=== PATIENT | male | born 2000 | race Caucasian/White ===

== ENCOUNTER 2024-12-11 20:47 | Emergency (ER) | payer OTHER, SELFPAY ==
--- OUTSIDE RECORDS SUMMARY | 2023-07-29 08:20 | XMS_ITS ---
Author Organization [facility] Address [address] [place] [address] Care Team Providers Care Drafting Supervisor Name Role Phone Alissa Will Primary Care Provider [phone] Magnolia Benson Unavailable [phone] REASON FOR VISIT 3 Month Psych F/U & Med Refill Medications Medication SIG (Take, Route, Frequency, Duration) Notes Start Date End Date Status Mylanta Double-Strength 400-400-40 MG/5ML 10 ml as needed Orally Four times a day 03/10/2016 Not-Taking hydrOXYzine Pamoate 25 MG 1-2 capsules a s needed Orally Up to three times a day; Duration: 30 days Active FLUoxetine HCl 40 MG 1 capsule Orally Tw ice a day; Duration: 5 days Active PX Omeprazole 20 MG 2 tablets Orally Onc e a day; Duration: 30 day(s) 04/29/2016 Not-Taking SEROquel 200 MG 1 tablet at night Orally Once a day; Duration: 30 days Active Naproxen 250 MG 1 tablet Orally Twic e a day Not-Taking PROzac 20 MG 2 caps every morning and 1 every evening Orally twice a day Not-Taking Remeron 15 MG 1.5 tablet at bedtim e Orally Once a day; Duration: 30 days Not-Taking FLUoxetine HCl 40 MG 1 capsule Orally Tw ice a day Not-Taking Vistaril 25 MG 2 capsules as needed Orally three times a day Not-Taking Remeron SolTab 45 MG 1 tablet on the ton avani and allow to dissolve at bedtime Orally Once a day Active Social History Sex Assigned At : Social History Observation Description Sex Assigned At Male Encounters Encounter Location Date Provider Diagnosis [address] [place] [address] 07/29/2023 Alissa Will Plan Of Treatment No Information Progress Notes * Moy HUNGOB: 1 (24 yo M)Acc No.[id number]:07/29/2023 UNLOCKED PROGRESS NOTE Patient: Dereje CONCEPCION Provider: Wesley Will, MSN, BUSINESS INTELLIGENCE ANALYST, HAND FRAME SURGICAL ELASTIC KNITTER-C :2000 A ge:23 Y S ex:Male Date:07/29/2023 Address: [facility] Subjective: * Chief Complaints: * 1 . 3 Month Psych F/U & Med Refill. * Medical History: * Medications: T aking Remeron SolTab 45 MG Tablet Disintegrating 1 tablet on the tongue and allow to dissolve at bedtime Orally Once a day , Taking SEROquel 200 MG Tablet 1 tablet at night Orally Once a day , Taking hydrOXYzine Pamoate 25 MG Capsule 1-2 capsules as needed Orally Up to three times a day , Taking FLUoxetine HCl 40 MG Capsule 1 capsule Orally Twice a day , Not-Taking FLUoxetine HCl 40 MG Capsule 1 capsule Orally Twice a day , Not-Taking Vistaril 25 MG Capsule 2 capsules as needed Orally three times a day , Not-Taking PROzac 20 MG Capsule 2 caps every morning and 1 every evening Orally twice a day , Not-Taking Remeron 15 MG Tablet 1.5 tablet at bedtime Orally Once a day , Not-Taking Naproxen 250 MG Tablet 1 tablet Orally Twice a day , Not-Taking Mylanta Double-Strength 400-400-40 MG/5ML Suspension 10 ml as needed Orally Four times a day , Not-Taking PX Omeprazole 20 MG Tablet Delayed Release 2 tablets Orally Once a day Objective: * Vitals: Assessment: Plan: * Treatment: * * Electronic signature of Araceli Will , [id number] on 12/11/2024 at 08:49 PM CDT Sign off status: Pending * Provider: Wesley Wlil, MSN, BUSINESS INTELLIGENCE ANALYST, HAND FRAME SURGICAL ELASTIC KNITTER-C Date: 0 07/29/2023 Generated for Sterling sanchez/Nancy/Trinyitting on: 0 12/11/2024 08:49 PM CDT
--- OUTSIDE RECORDS SUMMARY | 2024-04-19 08:40 | XMS_ITS ---
Author Organization [facility] Address [address] [place] [address] Care Team Providers Care Phlebotomist Associate Name Role Phone Alissa Will Primary Care Provider [phone] [address] Benson Unavailable [phone] REASON FOR VISIT 4 week F/U Social History Sex Assigned At : Social History Observation Description Sex Assigned At Male Encounters Encounter Location Date Provider Diagnosis [place] [address] [facility] [place] [address] 04/19/2024 Alissa Will Plan Of Treatment No Information Progress Notes * Moy HUNGOB: 1 (24 yo M)Acc No.[id number]:04/19/2024 UNLOCKED PROGRESS NOTE Patient: Dereje CONCEPCION Provider: OSWALD Sandoval, LANGUAGES AND LITERATURE INSTRUCTOR, HEREDITARY CANCER PROGRAM COORDINATOR-C :2000 A ge:24 Y S ex:Male Date:04/19/2024 Address:[address], [place], [place] Subjective: * Chief Complaints: * 1 . 4 week F/U. * Medical History: Objective: * Vitals: Assessment: Plan: * Treatment: * * Electronic signature of Araceli Will , [id number] on 12/11/2024 at 08:49 PM CDT Sign off status: Pending * Provider: Wesley Will, MSN, LANGUAGES AND LITERATURE INSTRUCTOR, HEREDITARY CANCER PROGRAM COORDINATOR-C Date: 0 04/19/2024 Generated for Sterling sanchez/Nancy/Trinyitting on: 0 12/11/2024 08:49 PM CDT
--- NOTE | ~2024-12-11 | XR_ITS ---
EXAMINATION: XR foot LT min 3V DATE: 12/11/2024 21:15 INDICATION: Left foot pain TECHNIQUE: Dorsoplantar, oblique and lateral views of the left foot were obtained. COMPARISON: None. FINDINGS: Bone alignment is normal. No fracture. Joint spaces are normal. No erosions. Hypertrophic change and small heterotopic ossicle along the dorsal margin of the head of the talus. Soft tissues are unremarkable. No ankle joint effusion. IMPRESSION: 1. No acute osseous abnormality. Reviewed, dictated and finalized at location A.
--- OUTSIDE RECORDS SUMMARY | 2024-12-11 20:49 | XMS_ITS | Clinical Summary ---
Author Organization [facility] Address [address] [place] [address] Care Team Providers Care Cargo Checker Name Role Phone None, Provider Primary Care Provider Unavaila ble Allergies No known active allergies Social History Tobacco Use Types Packs/Day Years Used Date Smoking Tobacco: Never Assessed Sex and Gender Information Value Date Recorded Sex Assigned at Not on file Legal Sex Male 7:19 PM CDT Gender Identity Not on file Sexual Orientation Not on file Last Filed Vital Signs Vital Sign Reading Time Taken Comments Blood Pressure 169/103 03/11/2019 11:08 PM PHYSICIAN OFFICE NURSE Pulse 106 03/11/2019 11:08 PM PHYSICIAN OFFICE NURSE Temperature 36.2 C (97.2 F) 03/11/2019 11:08 PM PHYSICIAN OFFICE NURSE Respiratory Rate 18 03/11/2019 11:08 PM PHYSICIAN OFFICE NURSE Oxygen Saturation 96% 03/11/2019 11:08 PM PHYSICIAN OFFICE NURSE Inhaled Oxygen Concentration - - Weight 124.7 kg (275 lb) 03/11/2019 11:05 PM PHYSICIAN OFFICE NURSE Height 182.9 cm (6') 03/11/2019 11:05 PM PHYSICIAN OFFICE NURSE Body Mass Index 37.3 03/11/2019 11:05 PM PHYSICIAN OFFICE NURSE Plan of Treatment Health Maintenance Due Date Last Done Comments Annual Physical 01/04/2004 HPV Vaccines (1 - Male 3-dos e series) 01/04/2016 Meningococcal B Vaccine (1 o f 2 - Standard) 2017 Hepatitis C 2019 DTaP, Tdap and Td Vaccines ( 1 - Tdap) 01/04/2020 Hepatitis B Vaccines (1 of 3 - 19+ 3-dose series) 01/04/2020 COVID-19 Vaccine ( - 2023-2 5 season) 2023 Meningococcal Vaccine Aged Out No yousuf michael eligible based on patient's age to complete this topic Pneumococcal Vaccine: Pediat rics (0 to 5 Years) and At-Risk Patients (6 to 49 Years) Aged Out No longer eligible b ased on patient's age to complete this topic RSV Immunizations Under 20 Months Aged Out No longer eligible based on patient's age to complete this topic [place] [address] [place] [address] Care Teams Cargo Checker Relationship Specialty Start Date End Date None, Provider, PCP - General 03/11/19
--- OUTSIDE RECORDS SUMMARY | 2024-12-11 20:49 | XMS_ITS | Patient Health Record ---
Author Organization [facility] Address [address] [place] [address] Care Team Providers Care Senior Administrative Associate Name Role Phone Alissa Will Primary Care Provider Magnolia Benson Unavailable [phone] Kamryn Madison Unavailable [phone] Allergies No Known Allergies Reason For Referral No Information Medications Medication SIG (Take, Route, Frequency, Duration) Notes Start Date End Date Status SEROquel 100 MG 1 tablet Orally Once a day at bedtime; Duration: 30 days Active Remeron SolTab 45 MG 1 tablet on the ton avani and allow to dissolve at bedtime Orally Once a day Not-Taking hydrOXYzine Pamoate 25 MG 1-2 capsules a s needed Orally Up to three times a day; Duration: 30 days Active FLUoxetine HCl 40 MG 1 capsule once a da y x7 days then two capsules daily x 23 days Orally as directed; Duration: 30 days Active Social History Tobacco Use: Social History Observation Description Date Details (start date - stop date) Current Smoker NA - NA Sex Assigned At : Social History Observation Description Sex Assigned At Male Dont use, Tobacco Use/Smoking Question Answer Notes Are you a current every day smoker Additional Findings: Tobacco User Light cigarett e smoker ((1-9 cigs/day) Tobacco Control (Standard) Question Answer Notes Tobacco use: Current every day smoker Additional Findings: Tobacco user Trivia l cigarette smoker (less than 1 cig/day) Problems Problem Type SNOMED Code ICD Code Onset Dates Problem Status W/U Status Risk Notes Problem Information temporarily unavailable Generalized anxiety disorder (F41.1) Active confirmed Problem Information temporarily unavailable Intermittent explosive disorder (F63.81) Active confirmed Problem Information temporarily unavailable Oppositional defiant disorder (F91.3) Active confirmed Problem Information temporarily unavailable Other chronic pain (G89.29) Active confirmed Problem Information temporarily unavailable Anxiety (F41.9) Active confirmed Problem Information temporarily unavailable Bipolar 1 disorder (F31.9) Active confirmed Problem Information temporarily unavailable Moderate episode of recurrent major depressive disorder (F33.1) Active confirmed Problem Information temporarily unavailable 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) Active confirmed Problem Information temporarily unavailable Upper abdominal pain (R10.10) Active confirmed Vital Signs Heart Rate 105 /min 12/21/2023 Respiratory Rate 16 /min 12/21/2023 Oximetry 98 % 12/21/2023 Blood pressure diastolic 88 mm Hg 12/21/2023 Height 70.5 in 12/21/2023 Blood pressure systolic 140 mm Hg 12/21/2023 Weight 346.00 lbs 12/21/2023 BMI 48.94 kg/m2 12/21/2023 Encounters Encounter Location Date Provider Diagnosis [facility] [address] [place] [address] [place] [address] 12/21/2023 Kamryn Madison Intermittent explosive disorder F63.81 ; Bipolar 1 disorder F31.9 ; Generalized anxiety disorder F41.1 and Medication monitoring encounter Z51.[address] [place] [address] 05/12/2024 Alissa Will Intermittent explosive disorder F63.81 ; Bipolar 1 disorder F31.9 ; Generalized anxiety disorder F41.1 and Medication monitoring encounter Z51.81 [facility]ly [facility] [address], [place] [address] 04/15/2024 Alissa Will Assessments Encounter Date Diagnosis (ICD Code) Assessment Notes Treatment Notes Treatment Clinical Notes Section Notes 12/21/2023 Intermittent explosive disorder (ICD-10 - F63.81) re-start and continue meds as ordered 12/21/2023 Bipolar 1 disorder (ICD-10 - F31.9) Reasons, potential benefits, interactions and side effects of all medications were discussed. The Patient/Guardian asked appropriate questions, appeared to understand the answers, and decided to accept the treatment and continue being followed. Alternatives and expected course without treatment were reviewed. The Patient/Guardian is aware of the need to contact the office or return for an earlier appointment if any problems or concerns arise. May also contact the 24-hour crisis hotline (R), refer to the closest emergency room or call 911 if new symptoms arise or existing symptoms worsen. The Patient/Guardian is aware that this would apply to symptoms like: suicidal ideation, homicidal ideation, high risk behaviors, manic symptoms, psychotic symptoms, physical symptoms, or any other symptoms that may be dangerous to self or others. Greater than 50% of time spent on coordination and counseling where psychopharmacology as well as psychotherapeutic interventions were discussed along with review of treatments in the past. Education provided concerning need for adequate hydration. Patient/Guardian verbalized understanding of education, treatment plan and follow up. Appointment performed in person. Follow up in 4 weeks or sooner as needed. May self-administer or be administered own oral medication per [facility]. Provided informed consent with understanding of side effects, risks and benefits as well as alternative treatments as previously discussed and with the above recommended medications ang other aspects of the treatment program. Agrees to return sooner if symptoms worsen or suicidal or homicidal ideations occur. support and education provided concerning illness and treatment plan, risks and benefits, pt verbalized understanding of the same and agreeable --mood had been stable, ran out of meds at the beginning of November, took last of his meds about 2 weeks ago, admits agressive mood swings, feeling more depressed and anxious, Mom moved back into the area, pt is in the process of moving back in with Mom from Grandma's house --will restart and titrate Seroquel as pt has been without meds for a couple weeks, re-start Seroquel for mood swings, depression insomnia, evaluate at follow up 05/12/2024 Intermittent explosive disorder (ICD-10 - F63.81) re-start and continue meds as ordered 05/12/2024 Bipolar 1 disorder (ICD-10 - F31.9) Client reports only taking 100mg (half a 200mg tablet) at night- adjusting dose to reflect this. Discussed AH, client reports this is rare and when stressed/depressed/an xious which he was last week when out of prozac medication- restarting this. Quetiapine- Take as prescribed. Reviewed purpose (mood stability), benefits, and risks - low blood pressure, metabolic syndrome with high cholesterol or high blood sugars, change in cardiac conduction, nausea, vomiting, temporary or permanent movement disorders, and akathisia. 12/21/2023 Generalized anxiety disorder (ICD-10 - F41.1) Continue Vistaril PRN as client reports this does help him --re-start and titrate Remeron for anxiety, evaluate at follow up 12/21/2023 Medication monitoring encounter (ICD-10 - Z51.81) 05/12/2024 Generalized anxiety disorder (ICD-10 - F41.1) Continue Vistaril PRN as client reports this does help him 05/12/2024 Medication monitoring encounter (ICD-10 - Z51.81) 05/12/2024 Other Reasons, potential benefits, potential risks, interactions and side effects of all medications were discussed. The Patient/Guardian asked appropriate questions, appeared to understand the answers, and decided to accept the treatment and continue being followed. Alternatives and expected course without treatment were reviewed. The Patient/Guardian is aware of the need to contact the office or return for an earlier appointment if any problems or concerns arise. May also contact the 24-hour crisis hotline ([facility]), refer to the closest emergency room or call 911 if new symptoms arise of existing symptoms worsen. The Patient/Guardian is aware that this would apply to symptoms like: suicidal ideation, homicidal ideation, high risk behaviors, manic symptoms, psychotic symptoms, physical symptoms, or any other symptoms that may be dangerous to self or others. Greater than 50% of time spent on coordination and counseling where psychopharmacology as well as psychotherapeutic interventions were discussed along with review of treatments in the past. Education provided concerning need for adequate hydration. Patient/Guardian verbalized understanding of education, treatment plan and follow up. This session was completed telephonically with client/parental/guard dacia consent: Unable to determine movement status, assess appearance, affect, AIMS, or vital signs. Plan Of Treatment Pending Test Test Name Order Date Xray : Ankle, right 03/10/2016 Insurance Providers Payer Name Payer Address Payer Phone Subscriber Number Group Number Insured Name Patient Relationship to Insured Coverage Start Date Coverage End Date [employer] [address] [place] [address] [id number] Dereje Easley Self - patient is the insured 7 4 [employer] [address] [place] [address] [id number] Dereje Easley Self - patient is the insured 2 4 Medical (General) History Medical History History ICD Code Moderate episode of recurrent major depr essive disorder Surgical History Surgery Date(Month/Year) Hospitalization History Reason Date(Month/Year)
[2024-12-11 20:53] VITALS: BP 153/94; PULSE 129; RESP 16; TEMP 36.7; O2SAT 100
[2024-12-11 23:06] VITALS: BP 132/88; PULSE 102; RESP 18; TEMP 36.4; O2SAT 96
--- NOTE | 2024-12-12 02:59 | ED.GENADULT ---
HPI - General Adult General Chief complaint: Extremity Injury, Lower Stated complaint: LEFT FOOT HURTS X 3-4 DAYS Time Seen by Provider: 12/12/24 02:55 History of Present Illness HPI narrative: Patient is a 24-year-old gentleman who presents emergency department chief complaint of foot pain. The patient reports for the last 3-4 days been having pain in the dorsum of his left foot patient is unsure if he injured a reports that it is worse with ambulation and improved with rest Related Data Home Medications ?Medication ?Instructions ?Recorded ?Confirmed ?Last Taken ?Type hydroxyzine HCl .ROUTE 12/11/24 Unknown History Allergies Allergy/AdvReac Type Severity Reaction Status Date / Time No Known Allergies Allergy Mild Verified 12/11/24 20:55 Review of Systems Review of Systems: A 10 system review of systems was completed on the patient and is negative except for what is stated in the HPI. Nursing and ancillary documentation was reviewed. Exam Narrative: GENERAL: Well-appearing, well-nourished, and in no acute distress. HEAD: Normocephalic, atraumatic. EYES: PERRLA and EOMI. ENT: Nares clear, no rhinorrhea or epistaxis. Mucous membranes moist. NECK: Supple. CHEST: Clear to auscultation. No respiratory distress. HEART: Regular rate and rhythm. No murmur heard. Normal peripheral pulses. ABDOMEN: Soft, nontender, nondistended, normal active bowel sounds. EXTREMITIES: Normal range of motion. No edema. Tenderness to palpation the dorsum of the left foot no deformity no bruising SKIN: Warm, dry, no rash. NEURO: No focal deficits. Alert and oriented x3. PSYCH: Normal mood and affect. Course Vital Signs Vital signs: Vital Signs Temperature 36.7 C 12/11/24 20:53 Pulse Rate 129 H 12/11/24 20:53 Respiratory Rate 16 12/11/24 20:53 Blood Pressure 153/94 H 12/11/24 20:53 Pulse Oximetry 100 12/11/24 20:53 Oxygen Delivery Room Air 12/11/24 20:53 Temperature 36.4 C 12/11/24 23:06 Pulse Rate 102 H 12/11/24 23:06 Respiratory Rate 18 12/11/24 23:06 Blood Pressure 132/88 12/11/24 23:06 Pulse Oximetry 96 12/11/24 23:06 Oxygen Delivery Room Air 12/11/24 20:53 Medical Decision Making MDM Narrative Medical decision making narrative: Differential diagnosis includes fracture, sprain Plain film x-ray showed no evidence of fracture Vital Signs Vital Signs: Vital Signs Temperature 36.7 C 12/11/24 20:53 Pulse Rate 129 H 12/11/24 20:53 Respiratory Rate 16 12/11/24 20:53 Blood Pressure 153/94 H 12/11/24 20:53 Pulse Oximetry 100 12/11/24 20:53 Oxygen Delivery Room Air 12/11/24 20:53 Temperature 36.4 C 12/11/24 23:06 Pulse Rate 102 H 12/11/24 23:06 Respiratory Rate 18 12/11/24 23:06 Blood Pressure 132/88 12/11/24 23:06 Pulse Oximetry 96 12/11/24 23:06 Oxygen Delivery Room Air 12/11/24 20:53 Discharge Plan Discharge Clinical Impression: Sprain of foot, left Patient Disposition: Home Condition: Stable Instructions: Antibiotic Form, Foot Sprain (ED) Additional Instructions: Please rest elevate Neisseria extremity. He may take ibuprofen for the pain. Please follow-up with your primary care provider Patient Language: Maltese Prescriptions: No Action hydroxyzine HCl .ROUTE Follow-up/Referrals: Leda Segura DO [Physician, Family Practice] PHYSICIAN,PIPELINE DISPATCH OPERATOR [Primary Care Provider, Internal Medicine] Time of Disposition: 03:03
[2024-12-12 03:00] VITALS: BP 136/83; PULSE 96; RESP 17; O2SAT 98
[2024-12-12 03:38] VITALS: BP 136/83; PULSE 96; RESP 17; O2SAT 98
== END 2024-12-12 03:43 | disposition home or self-care (01) ==
LOC: ANHED 12-12 03:19
PROVIDERS: Emergency Provider Emergency Medicine
DX: S93.602A Unspecified sprain of left foot, initial encounter (principal); X58.XXXA Exposure to other specified factors, initial encounter
CPT/HCPCS: 73630; 99283